=== PATIENT | female | born 1980 | race Caucasian/White ===

== ENCOUNTER → 2019-10-29 14:18 | Outpatient (BNVA) | payer SELFPAY | PROVIDERS: Family Provider Physician Assistant; PCP Family Medicine; Visit Provider Family Medicine | DX: R05 Cough (principal) | CPT/HCPCS: 71046 ==

== ENCOUNTER → 2021-06-01 14:31 | Outpatient (BNVA) | payer OTHER, SELFPAY | PROVIDERS: Family Provider Physician Assistant; PCP Family Medicine; Visit Provider Family Medicine | DX: R05.3 Chronic cough (principal) | CPT/HCPCS: 71046 ==

== ENCOUNTER 2021-09-14 10:44 | Outpatient (CLI) | payer OTHER, SELFPAY ==
--- NOTE | 2021-09-14 10:48 | MR_ITS ---
WS: [id number] MRI HEAD WITH CONTRAST TECHNIQUE: Sagittal T1, T2 axial, T2 axial FLAIR, axial susceptibility weighted imaging, axial diffus ion weighted images, and coronal T2 images were obtained. Pre and post-T1 axial and post T1 coronal i mages. ADC and FSPGR images. CLINICAL INFORMATION: TIA/RT SIDED FACIAL UPPER EXTREMITY WEAKNESS COMPARISON: CT 8 FINDINGS: No evidence of restricted diffusion to suggest acute ischemia. Ventricular system and basal cisterns are patent. Normal posterior fossa. Normal vascular flow voids at the skull base. No extra axial flui d collections. Paranasal sinuses and mastoid air cells well aerated. No suspicious intracranial signal abnormalities. Normal colbert-white differentiation. Normal optic leonardo sm and pituitary infundibulum. Temporal lobes and hippocampal formations are normal in appearance. No hemosiderin on susceptibly weighted images. No abnormal gadolinium enhancement. Normal dural venous sinuses. MR/MR head wo/w con [id number] IMPRESSION: 1. No evidence of restricted diffusion to suggest acute ischemia. 2. No suspicious intracranial signal abnormalities. Normal colbert-white differen tiation. 3. Paranasal sinuses and mastoid air cells well aerated. 4. No hemosiderin on susceptibly weighted images. 5. No abnormal gadolinium enhancement. 6. Normal optic chiasm and pituitary infundibulum. 7. No other significant findings.
[2021-09-14] MEDS: gadobenate dimeglumine 20 mL vial IV (11:40)
== END 2021-09-14 10:45 | disposition home or self-care (01) ==
LOC: RAD 10:46
PROVIDERS: PCP Family Medicine; Visit Provider Family Medicine
DX: Z86.73 Personal history of transient ischemic attack (TIA), and cerebral infarction without residual deficits (principal); R53.1 Weakness
CPT/HCPCS: 70553

== ENCOUNTER → 2022-04-29 16:19 | Outpatient (BNVA) | payer OTHER, BC, SELFPAY | PROVIDERS: PCP Family Medicine; Visit Provider Obstetrics & Gynecology | DX: R10.2 Pelvic and perineal pain (principal) | CPT/HCPCS: 76830 ==

== ENCOUNTER 2022-05-03 11:08 | Day surgery (SDC) | payer OTHER, BC, MEDICAID, SELFPAY ==
[2022-05-02 12:23] VITALS: BMI 23.0
[2022-05-03] VITALS (7 sets, daily range): BP systolic 109–123; BP diastolic 68–78; PULSE 65–85; RESP 14–18; TEMP 36.1–36.6; O2SAT 99–100
[2022-05-03 11:51] LABS: OR HCG Qualitative Urine Negative (Negative)
[2022-05-03] MEDS: sodium chloride 0.9% 1,000 ML 30 ML IV (11:55)
[2022-05-03 11:59] LABS: Basophils # 0.1 10^3/uL (0.0-0.1); Basophils % 0.7 %; Eosinophils # 0.2 10^3/uL (0.0-0.8); Eosinophils % 1.6 %; Hematocrit 27.7 % (37.0-47.0); Hemoglobin 8.1 g/dL (11.5-15.3); Lymphocytes % 21.3 %; Mean Corpuscular HGB Conc 29.2 g/dL (30.0-36.0); Mean Corpuscular Hemoglobin 22.4 pg (28.0-34.0); Mean Corpuscular Volume 76.5 fl (81-99); Monocytes # 0.6 10^3/uL (0.2-0.9); Monocytes % 6.3 %; Neutrophils # 6.41 10^3/uL (1.8-7.7); Neutrophils % 69.9 %; Nucleated Red Blood Cells % 0 %; Platelet Count 399 10^3/cmm (130-400); Red Blood Count 3.62 10^6/uL (4.1-5.3); Red Cell Distribution Width 17.1 % (12.1-15.1); White Blood Count 9.2 10^3/uL (4.0-10.0)
--- NOTE | 2022-05-03 12:22 | W.PM.OPSUD ---
Surgery/Procedure H&P Update DATE OF PROCEDURE: May 03, 2022 DATE H&P PERFORMED: 04/29/22 H&P UPDATE INFORMATION: I have reviewed H&P completed within last 30 days, I have examined patient prior to procedure and No changes to prior documentation PREOP DIAGNOSIS: AUB, pelvic mass PLANNED PROCEDURE: Operation Date: 05/03/22 12:45 Proposed Procedures p Hysteroscopy, dilation and curettage with Myosure 41085, [id number],47535,N85.8,N93.9(Not Applicable) - Shania Gautam MD s Dilation And Curettage (D&C)(Not Applicable) - Shania Gautam MD Related Problem List Diagnoses (1) Abnormal uterine bleeding (AUB): (2) Enlarged uterus: (3) Endometriosis:
--- NOTE | 2022-05-03 12:23 | P.ANESASSM_ITS ---
Pre-Anesthetic Assessment Height/Weight: Height 1.6 m Weight 58.967 kg Temp Pulse Resp BP Pulse Ox O2 Del Method 97.6 F 85 18 123/75 100 05/03/22 11:28 05/03/22 11:28 05/03/22 11:28 05/03/22 11:28 05/03/22 11:05/03/22 11:30 Preop Diagnosis: AUB, pelvic mass Operation Date: 05/03/22 12:45 Proposed Procedures p Hysteroscopy, dilation and curettage with Myosure 22011, [id number],79470,N85.8,N93.9(Not Applicable) - Shania Gautam MD s Dilation And Curettage (D&C)(Not Applicable) - Shania Gautam MD Familial anesthetic complications: None Was Beta Sukhjinder taken within 24 hours: Yes Was Clonidine taken within 24 hours: N/A Last intake: Intake Last Liquid Date 05/02/22 Last Liquid Time 20:00 Last Solid Date 05/02/22 Last Solid Time 18:00 Social No alcohol and No tobacco Exam alert, oriented x 3, clear to auscultation bilaterally and regular rate & rhythm Airway Mallampati: Class III Dentition: chipped CV/HEM Anemia Musc/skel Fibromyalgia Anesthetic Plan ASA status: 2 Anesthesia: Choice Risk of > 500 ml blood loss (7ml/kg in children): No Medications/Allergies Home Medications Medication Instructions Recorded Confirmed Last Taken Type alprazolam 0.5 mg tablet (Xanax) 0.5 mg PO BID 07/09/20 05/03/22 04/29/22 History amitriptyline 25 mg tablet 25 mg PO DAILY 07/09/20 05/03/22 05/02/22 History cyclobenzaprine 5 mg PO BID PRN Muscle Spasm 07/09/20 05/03/22 Unknown History escitalopram oxalate 20 mg tablet 20 mg PO DAILY 07/09/20 05/03/22 Unknown History (Lexapro) gabapentin 600 mg tablet 600 mg PO BID 07/09/20 05/03/22 05/02/22 History propranolol 20 mg tablet 20 mg PO DAILY 07/09/20 05/03/22 05/02/22 History tramadol 50 mg PO BID PRN Pain 07/09/20 05/03/22 04/29/22 History Allergies Allergy/AdvReac Type Severity Reaction Status Date / Time cephalexin [From Keflex] Allergy ALGY-Hives Verified 05/03/22 11:26 [facility] Anesthesia Medical History (Updated 05/02/22 @ 00:08 by Shania Gautam MD) Anxiety Depression No pertinent past medical history neghx: htn,dm,thryoid,dvt/pe Surgical History History of laparoscopy x2 around age 18 History of surgery on lower extremity (~2016) Right leg History of tubal ligation (~12/05/02) Family History (Updated 04/29/22 @ 14:12 by Luli Reynoso) Grandmother Colon cancer Maternal--dx age 50's-60's Hypertension Maternal Ovarian cancer Paternal--dx age unknown Mother Heart disease Denies family history of Diabetes Hypercholesteremia Breast cancer Uterine cancer Thyroid disease Stroke Female Reproductive History Date of last menstrual period: 03/24/22 Data Anesthesia : 05/03/22 11:45 Short CBC 05/03/22 Range/Units 11:45 WBC 9.2 (4.0-10.0) 10^3/uL Hgb 8.1 L (11.5-15.3) g/dL Hct 27.7 L (37.0-47.0) % MCV 76.5 L (81-99) fl Plt Count 399 (130-400) 10^3/cmm Neut % (Auto) 69.9 % Neut # (Auto) 6.41 (1.8-7.7) 10^3/uL Cardiac Studies: No Data to Display
[2022-05-03] MEDS: piperacillin-tazobactam 3.375 GM in sodium chloride 0.9% (plus) 50 ML IV (13:44)
--- NOTE | 2022-05-03 14:37 | SUR.OPER ---
moncels applied to cervix by dr gilliland.
--- NOTE | 2022-05-03 14:55 | P.OP_ITS ---
Operative Report Date of procedure: May 03, 2022 Pre-op diagnosis: Preop Diagnosis AUB, pelvic mass Post-op diagnosis: other (same, plus cervical mass) Procedure done: hysteroscopy, dilation and curettage, cervical biopsy Specimens removed/disposition: endometrial curettings, cervical biopsy to pathology Surgeon: Shania Gautam Anesthesia: MAC Estimated blood loss (mL): 50 IV fluids (mL): 600 Complications: none Findings: hysteroscopy deficit 135 Condition: stable Disposition: PACU Procedure: The patient was taken to the operating room where monitored anesthesia was administered and to be adequate. She was prepped and draped in the normal sterile fashion in the dorsal lithotomy position in [facility]. A weighted speculum was placed into the vagina and the anterior lip of the cervix grasped with a single-tooth tenaculum. The uterus was sounded to 10 cm. The cervix was dilated to 16 Tamazight. The hysteroscope was advanced into the endometrial cavity. There was excessive tissue and what appeared to be possible fibroids visualized. The MyoSure device was activated and the tissue was removed. Pictures were taken pre and post procedure. Upon entry, the Cervix was very abnormal appearing. It was enlarged, firm and There was a mass in the transitional area. A biopsy was taken using an Allis clamp and cautery. There was good hemostasis post removal, after monsel's solution was applied. All instruments were removed. The patient tolerated the procedure well. Sponge lap and needle counts were correct x3. She was taken to the recovery room in stable condition.
--- NOTE | 2022-05-03 15:06 | PM.DCS ---
Discharge Providers Date of Admission: 05/03/22 Date of Discharge: May 03, 2022 Attending Provider at Discharge: Shania Gautam MD Primary Care Provider: ELY JAIMES MD Diagnoses at Discharge Discharge Diagnosis (1) Abnormal uterine bleeding (AUB): Status: Acute (2) Enlarged uterus: Status: Acute (3) Endometriosis: Status: Acute Hospital Course Hospital Course The patient was admitted for surgery. She did well postoperatively and was ready for discharge. Discharge Data Studies Completed and Pending Pending at discharge Category Date Time Status ES surgery / GI images Routine Exams 05/03/22 13:14 Taken Pathology: Surgical [PTH] Routine Pth 05/03/22 14:39 Received Laboratory Results WBC 9.2 10^3/uL (4.0-10.0) 05/03/22 11:45 RBC 3.62 10^6/uL (4.1-5.3) L 05/03/22 11:45 Hgb 8.1 g/dL (11.5-15.3) L 05/03/22 11:45 Hct 27.7 % (37.0-47.0) L 05/03/22 11:45 MCV 76.5 fl (81-99) L 05/03/22 11:45 MCH 22.4 pg (28.0-34.0) L 05/03/22 11:45 MCHC 29.2 g/dL (30.0-36.0) L 05/03/22 11:45 RDW 17.1 % (12.1-15.1) H 05/03/22 11:45 Plt Count 399 10^3/cmm (130-400) 05/03/22 11:45 MPV 9.0 fL (7.4-10.4) 05/03/22 11:45 Neut % (Auto) 69.9 % 05/03/22 11:45 Lymph % (Auto) 21.3 % 05/03/22 11:45 Charlton % (Auto) 6.3 % 05/03/22 11:45 Eos % (Auto) 1.6 % 05/03/22 11:45 Baso % (Auto) 0.7 % 05/03/22 11:45 Neut # (Auto) 6.41 10^3/uL (1.8-7.7) 05/03/22 11:45 Lymph # (Auto) 2.0 10^3/uL (0.8-4.8) 05/03/22 11:45 Charlton # (Auto) 0.6 10^3/uL (0.2-0.9) 05/03/22 11:45 Eos # (Auto) 0.2 10^3/uL (0.0-0.8) 05/03/22 11:45 Baso # (Auto) 0.1 10^3/uL (0.0-0.1) 05/03/22 11:45 Nucleated RBC % (auto) 0 % 05/03/22 11:45 Nucleated RBCs # 0.0 /100WBC 05/03/22 11:45 Urine HCG, Qual Negative (Negative) 05/03/22 11:50 Vitals Last Vital Signs Temp 97.2 F L 05/03/22 15:02 Pulse 73 05/03/22 15:02 Resp 15 05/03/22 15:02 BP 118/78 05/03/22 15:02 Pulse Ox 100 05/03/22 15:02 O2 Del Method 05/03/22 15:02 Discharge Plan Discharge Patient Disposition: Home Condition: Stable Prescriptions: Continued amitriptyline 25 mg tablet 25 mg PO DAILY gabapentin 600 mg tablet 600 mg PO BID alprazolam [Xanax] 0.5 mg tablet 0.5 mg PO BID escitalopram oxalate [Lexapro] 20 mg tablet 20 mg PO DAILY propranolol 20 mg tablet 20 mg PO DAILY tramadol 50 mg PO BID PRN (Reason: Pain) cyclobenzaprine 5 mg PO BID PRN (Reason: Muscle Spasm) Discharge Orders: Discharge Order (Routine); Ordered 05/03/22 Ordered By: Shania Gautam Discharge Attestations Time Spent in Discharge Care*: less than 30 min Quality Metrics Clinical Quality Measures [ No reported AMI, CVA or VTE this stay] Coding Level of Care Code Acute Chg FW DC note Diagnoses Abnormal uterine bleeding (AUB) N93.9 Enlarged uterus N85.2 Endometriosis N80.9
== END 2022-05-03 15:33 | disposition home or self-care (01) ==
PROVIDERS: PCP Family Medicine; Visit Provider Obstetrics & Gynecology
PROC: 0UDB8ZZ Extraction of Endometrium, Via Natural or Artificial Opening Endoscopic (ICD-10-PCS; CPT 58558; principal; 2022-05-03 12:35)
PROC: (CPT 58120; 2022-05-03 12:35)
DX: N93.9 Abnormal uterine and vaginal bleeding, unspecified (principal); N80.9 Endometriosis, unspecified; M79.7 Fibromyalgia
CPT/HCPCS: 58558; 81025; 84703; 85025; 88305; 88342; J1100; J2250; J2405; J2543; J2704; J3010; J3490; J7030